=== PATIENT | female | born 1965 | race Caucasian/White ===

== ENCOUNTER 2018-12-04 14:05 | Emergency (ER) | payer OTHER ==
[~2018-12-04] VITALS: Wt 62.2 kg
[2018-12-04] MEDS ORDERED: morphine 4 MG/ML VIAL IV STA (16:28)
[2018-12-04] MEDS ORDERED: ONDANSETRON 4 MG INJ IV STA (16:28)
[2018-12-04] MEDS ORDERED: SOD CHLORIDE 0.9% 1,000 ML IV ONE (17:00)
[2018-12-04] MEDS ORDERED: SOD CHLORIDE 0.9% 100 ML ONE (18:47)
[2018-12-04] MEDS ORDERED: IOHEXOL 300MG/ML 150 ML BTL ONE (18:47)
[2018-12-04] MEDS ORDERED: DOCU-144 PO (21:19)
[2018-12-04] MEDS ORDERED: OXYC-279 PO (21:19)
[2018-12-04] MEDS ORDERED: IBUP-1542 PO (21:19)
--- NOTE | 2018-12-04 21:39 | ERD ---
ER Documentation Chief Complaint Chief Complaint milan leg pain, vaginal and rectal pain, hx of mass, see note ROS All systems reviewed and are negative except as per history of present illness. 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 Neck: Full range of motion. No meningismus. Resp: Clear to auscultation bilaterally Cardio: Regular rate and rhythm, no murmurs Abd: Soft, non tender, non distended. Normal bowel sounds Skin: No petechiae or rashes Back: No midline or flank tenderness Ext: No cyanosis, or edema Neur: Awake and alert Psych: Normal Mood and Affect Result Diagram: 12/04/182 12/04/18 165 Results 24 hrs Laboratory Tests Test 12/04/18 16:52 12/04/18 17:10 12/04/18 17:11 12/04/18 19:17 White Blood Count 10.1 10^3/ul Red Blood Count 4.93 10^6/ul Hemoglobin 12.6 g/dl Hematocrit 40.4 % Mean Corpuscular 81.9 fl Volume Mean Corpuscular 25.6 pg Hemoglobin Mean Corpuscular 31.2 g/dl Hemoglobin Concen t Red Cell 13.6 % Distribution Width Platelet Count 296 10^3/UL Mean Platelet 10.0 fl Volume Immature 0.500 % Granulocytes % Neutrophils % 59.0 % Lymphocytes % 32.8 % Monocytes % 6.6 % Eosinophils % 0.6 % Basophils % 0.5 % Nucleated Red 0.0 /100WBC Blood Cells % Immature 0.050 10^3/ul Granulocytes # Neutrophils # 6.0 10^3/ul Lymphocytes # 3.3 10^3/ul Monocytes # 0.7 10^3/ul Eosinophils # 0.1 10^3/ul Basophils # 0.1 10^3/ul Nucleated Red 0.0 10^3/ul Blood Cells # Sodium Level 138 mmol/L Potassium Level 3.7 mmol/L Chloride Level 95 mmol/L Carbon Dioxide 29 mmol/L Level Anion Gap 14 Blood Urea 14 mg/dl Nitrogen Creatinine 0.68 mg/dl Est Glomerular > 60 mL/min Filtrat Rate mL/min Glucose Level 105 mg/dl Calcium Level 7.1 mg/dl Total Bilirubin 0.5 mg/dl Direct Bilirubin 0.00 mg/dl Indirect 0.5 mg/dl Bilirubin Aspartate Amino 27 IU/L Transf (AST/SGOT) Alanine 25 IU/L Aminotransferase (ALT/SGPT) Alkaline 75 IU/L Phosphatase Total Protein 8.1 g/dl Albumin 4.3 g/dl Globulin 3.80 g/dl Albumin/Globulin 1.13 Ratio Urine Color YELLOW Urine Clarity CLEAR Urine pH 6.0 Urine Specific 1.011 [place] Urine Ketones NEGATIVE mg/dL Urine Nitrite NEGATIVE mg/dL Urine Bilirubin NEGATIVE mg/dL Urine NEGATIVE mg/dL Urobilinogen Urine Leukocyte NEGATIVE Tin/ul Esterase Urine Hemoglobin NEGATIVE mg/dL Urine Glucose NEGATIVE mg/dL Urine Total NEGATIVE mg/dl Protein POC Beta HCG, NEGATIVE Qualitative Prothrombin Time 12.6 Sec Prothrombin Time 1.0 Ratio INR International 0.93 Normalized Ratio Activated 25.5 Sec Partial Thrombopl ast Time Current Medications Medications Dose Sig/Anali Start Time Status Last (Trade) Ordered Route PRN Stop Time Admin Dose Reason Admin Morphine 4 mg ONCE STAT 12/04/18 DC 12/04/18 Sulfate IV 16:28 19:17 (morphine) 12/04/18 16:34 Ondansetron 4 mg ONCE STAT 12/04/18 DC 12/04/18 HCl (Zofran IV 16:28 19:17 Inj) 12/04/18 16:34 Sodium 1,000 ml @ Q1H ONCE 12/04/18 DC 12/04/18 Chloride 1,000 mls/hr IV 17:00 19:17 12/04/18 17:59 IV Flush 10 ml STK-MED 12/04/18 DC (NS 10 ml) ONCE .ROUTE 18:47 12/04/18 18:48 Sodium 100 ml @ ud STK-MED 12/04/18 DC Chloride ONCE .ROUTE 18:47 12/04/18 18:48 Iohexol 150 ml STK-MED 12/04/18 DC (Omnipaque ONCE .ROUTE 18:47 300mg/ ml) 12/04/18 18:48 Departure Diagnosis: Primary Impression: Mass on back Additional Impressions: Uterine mass Leg pain, bilateral Condition: Fair Patient Instructions: Back Pain (Acute Or Chronic), Uterine Fibroids Referrals: BENNY DELANEY MD,DANGELO DRAPER,STEVE GREWAL,ABRAM BECERRIL,OTTO HUFF,SAMMY CARTER,PASTOR CARDONA,DENIS MCPHERSON,TALI CAPUTO,CECELIA MOLINA,NOÉ MARTINEZ,JOSEPH GALEANA,MARLON HUTCHINS,MARIANA BARRAZA,VERA PEREZ,GILBERTO MANRIQUEZ,KATEY POLK,CHARLENE ALEJANDRA,FRANCESCO CANTU,BENNY PEREA,DUDLEY SNEED [facility] YOU HAVE RECEIVED A MEDICAL SCREENING EXAM AND THE RESULTS INDICATE THAT YOU DO NOT HAVE A CONDITION THAT REQUIRES URGENT TREATMENT IN THE EMERGENCY DEPARTMENT. FURTHER EVALUATION AND TREATMENT OF YOUR CONDITION CAN WAIT UNTIL YOU ARE SEEN IN YOUR DOCTORS OFFICE WITHIN THE NEXT 1-2 DAYS. IT IS YOUR RESPONSIBILITY TO MAKE AN APPOINTMENT FOR FOLOW-UP CARE. IF YOU HAVE A PRIMARY DOCTOR --you should call your primary doctor and schedule an appointment IF YOU DO NOT HAVE A PRIMARY DOCTOR YOU CAN CALL OUR PHYSICIAN REFERRAL HOTLINE AT IF YOU CAN NOT AFFORD TO SEE A PHYSICIAN YOU CAN CHOSE FROM THE FOLLOWING [facility] [address] [facility] [address] [facility] [address] [facility] [facility] [address] [facility]. [facility] [address] [facility]. [facility] [address] [place] [employer] [place] [address] [facility] [address] [place] [address] OFFICE FAX , [facility] [address] [place] [address] [address] [address] [place] [address] [address], [facility] [address] [facility], [facility] [address] [address] [facility] [address] [place] [address] [facility] [facility] [address] [place] [address] [phone] [facility] [address] - [address], [place] [address] [address] FLETCHER, [place] [address] [facility]. [address], [place] [address] [address] LOPEZ, FARTN [address] [place], [place] [id number] Additional Instructions: Llame al doctor MAANA y zacarias lara VISHAL PARA DENTRO DE 1-2 QUINN.Dgale a la secretaria que nosotros le instruimos hacer esta vishal.Avise o llame si garcia condicin se empeora antes de la vishal. Regresa aqui si peor o no mejor. Need to get MRI results from [facility] Follow up with POLICE [employer] and neurosurgery. DORIAN LOREDO DO Dec 04, 2018 21:39
[2018-12-04] MEDS ORDERED: ONDANSETRON (ODT) 4 MG TAB ODT STA (22:00)
[2018-12-04 22:07] VITALS: BP 111/66; PULSE 73; RESP 20
== END 2018-12-04 22:10 | disposition home or self-care (01) ==
LOC: FTE 14:05
DX: M79.605 Pain in left leg (principal); M79.604 Pain in right leg; R22.2 Localized swelling, mass and lump, trunk; N85.8 Other specified noninflammatory disorders of uterus; R10.2 Pelvic and perineal pain
CPT/HCPCS: 71260; 74177; 80053; 81003; 81025; 85025; 85610; 85730; 96374; 96375; J2270; J2405; J7030; P9612; Q9967; Z7502; Z7610; A4310